=== PATIENT | male | born 1995 | race Caucasian/White ===

== ENCOUNTER 2018-07-18 12:54 | Emergency (ER) | payer OTHER ==
[~2018-07-18] VITALS: Ht 167.6 cm; Wt 59.0 kg
[2018-07-18 13:01] VITALS: Ht 167.6 cm; Wt 59.0 kg
[2018-07-18 14:02] LABS: BASOPHIL % 0.5 % (0-2); PLATELET COUNT 246 x10^3mcL (130-400); RED CELL DISTRIBUTION WIDTH 12.9 % (11.5-14.5)
[2018-07-18 14:14] LABS: CALCIUM 9.7 mg/dL (8.5-10.1); CARBON DIOXIDE 19.7 mmol/L (21-32); CHLORIDE SERUM 99 mmol/L (98-107); CREATININE SERUM 1.2 mg/dL (0.7-1.3); GFR1 > 60 mL/min; GLUCOSE SERUM 102 mg/dL (74-106); POTASSIUM SERUM 3.6 mmol/L (3.5-5.1); SODIUM SERUM 134 mmol/L (136-145)
[2018-07-18 14:18] LABS: ALBUMIN 4.3 g/dL (3.4-5.0); ALKALINE PHOSPHATASE 73 U/L (46-116); ALT/SGPT 19 U/L (16-63); AST/SGOT 16 U/L (15-37); BILIRUBIN TOTAL 0.8 mg/dL (0.20-1.00)
[2018-07-18 14:19] LABS: TOTAL PROTEIN, SERUM 8.4 g/dL (6.4-8.2)
[2018-07-18 14:57] LABS: UA SPECIFIC GRAVITY 1.025 (1.005-1.035); microscopic required? YES; urine erythrocyte NEGATIVE (NEGATIVE)
[2018-07-18 15:09] LABS: AMPHETAMINE QUAL UR POSITIVE (See below)
[2018-07-18 18:36] VITALS: BP 124/68
== END 2018-07-18 18:36 | disposition home or self-care (01) ==
LOC: ED 12:54
PROVIDERS: Specialist
DX: F15.10 Other stimulant abuse, uncomplicated (principal); E86.0 Dehydration; F31.9 Bipolar disorder, unspecified
CPT/HCPCS: G0480; J2060; J7030

== ENCOUNTER 2019-06-23 13:14 | Emergency (ER) | payer OTHER ==
[~2019-06-23] VITALS: Ht 162.6 cm; Wt 54.4 kg
[2019-06-23 13:17] VITALS: Ht 162.6 cm; Wt 54.4 kg
[2019-06-23 14:17] LABS: BASOPHIL % 0.5 % (0-2); PLATELET COUNT 205 x10^3mcL (130-400); RED CELL DISTRIBUTION WIDTH 13.6 % (11.5-14.5)
[2019-06-23 14:28] LABS: microscopic required? NO
[2019-06-23 14:29] LABS: CALCIUM 8.8 mg/dL (8.5-10.1); CARBON DIOXIDE 27.4 mmol/L (21-32); CHLORIDE SERUM 106 mmol/L (98-107); CREATININE SERUM 0.8 mg/dL (0.7-1.3); GFR1 > 60 mL/min; GLUCOSE SERUM 104 mg/dL (74-106); POTASSIUM SERUM 3.9 mmol/L (3.5-5.1); SODIUM SERUM 144 mmol/L (136-145)
[2019-06-23 14:33] LABS: ALBUMIN 3.4 g/dL (3.4-5.0); ALKALINE PHOSPHATASE 101 U/L (46-116); ALT/SGPT 22 U/L (16-63); AST/SGOT 19 U/L (15-37); BILIRUBIN TOTAL 0.2 mg/dL (0.20-1.00); TOTAL PROTEIN, SERUM 6.8 g/dL (6.4-8.2)
[2019-06-23 14:42] LABS: AMPHETAMINE QUAL UR POSITIVE (See below)
[2019-06-23 14:48] LABS: urine erythrocyte NEGATIVE (NEGATIVE)
--- NOTE | 2019-06-23 17:43 | NUR ---
Spoke with Pat and received intake on patient for placement. Sent out information to facilities who are possible placement for continuity of care. Sent packet to: Priyanka Garcia - LUIS Gillis - [facility] - Leslie Henderson - Britta Chappell - Julianna Thomas - Luis Felipe All facilities will keep us updated if any beds are available. At this time there are no beds available. We will keep you informed of updates. Thank you
[2019-06-23 19:03] VITALS: BP 104/63
== END 2019-06-23 20:00 ==
LOC: ED 13:14
PROVIDERS: Student in an Organized Health Care Education/Training Program
DX: R45.850 Homicidal ideations (principal); R45.1 Restlessness and agitation; F31.9 Bipolar disorder, unspecified; F15.10 Other stimulant abuse, uncomplicated; F10.10 Alcohol abuse, uncomplicated
CPT/HCPCS: 36415; G0480; Q0092